=== PATIENT | female | born 1970 | race Caucasian/White ===

== ENCOUNTER 2018-08-06 07:57 | Emergency (ER) | payer MEDICAID, OTHER ==
[~2018-08-06] VITALS: Ht 162.6 cm; Wt 51.8 kg
[2018-08-06 08:05] VITALS: BP 104/63
[2018-08-06] MEDS ORDERED: KETOROLAC 30 MG/1 ML ONE (08:25)
[2018-08-06] MEDS ORDERED: KETOROLAC 30 MG/1 ML IM ONE (08:30)
== END 2018-08-06 09:32 | disposition home or self-care (01) ==
LOC: ED 09:15
DX: S63.641A Sprain of metacarpophalangeal joint of right thumb, initial encounter (principal); S60.221A Contusion of right hand, initial encounter; W01.10XA Fall on same level from slipping, tripping and stumbling with subsequent striking against unspecified object, initial encounter; Y93.89 Activity, other specified; Y92.098 Other place in other non-institutional residence as the place of occurrence of the external cause; Y99.8 Other external cause status
CPT/HCPCS: 29125; 73130; 96372; 99284; J1885

== ENCOUNTER 2020-06-11 19:18 | Emergency (ER) | payer OTHER ==
[~2020-06-11] VITALS: Ht 162.6 cm; Wt 51.8 kg
[2020-06-11 19:21] VITALS: BP 127/59
== END 2020-06-11 20:50 | disposition home or self-care (01) ==
LOC: ED 20:26
DX: S97.111A Crushing injury of right great toe, initial encounter (principal); S97.81XA Crushing injury of right foot, initial encounter; X58.XXXA Exposure to other specified factors, initial encounter; Y93.89 Activity, other specified; Y92.098 Other place in other non-institutional residence as the place of occurrence of the external cause; Y99.8 Other external cause status
CPT/HCPCS: 99283

== ENCOUNTER 2020-11-12 05:47 | Emergency (ER) | payer OTHER ==
[~2020-11-12] VITALS: Ht 162.6 cm; Wt 52.7 kg
[2020-11-12] MEDS ORDERED: KETOROLAC 30 MG/1 ML ONE (06:05)
[2020-11-12] MEDS ORDERED: KETOROLAC 30 MG/1 ML IM ONE (06:30)
[2020-11-12 06:45] VITALS: BP 18/81
== END 2020-11-12 06:47 | disposition home or self-care (01) ==
LOC: ED 06:35
DX: J01.00 Acute maxillary sinusitis, unspecified (principal)
CPT/HCPCS: 96372; 99283; J1885